=== PATIENT | female | born 1960 | race Asian ===

== ENCOUNTER 2025-07-20 15:27 | Inpatient (IN) | payer OTHER, SELFPAY ==
[2025-07-20] VITALS (35 sets, daily range): BP systolic 95–151; BP diastolic 60–130; BMI 22.6
[2025-07-20 09:12] LABS: Glucose - Point of Care 107 mg/dl (70-99)
[2025-07-20] MEDS: NSS 185 ML IV (09:54)
[2025-07-20] MEDS: LOW STRENGTH ASPIRIN 81 MG PO (10:02)
--- NOTE | 2025-07-20 14:52 | PTCARENOTE ---
pt found w head on table in front of her , stating she needs to lie down . she was diaphortic and pale w sustained hr of 36. pt did have low heart rate on admission as low as 36 but not sustained, dr escalante aware of this since admission. layed pt
back in chair bp 97/36 and responding to questions . chan no security operations manager at bedside 0.[address] escalante call to bedside to evaluate pt and speak with family .
--- NOTE | 2025-07-20 14:59 | W.PN.UPDATE ---
Update Note
Progress Note Update
CTSP re: presyncope/symptomatic bradycardia. Pt is post cath and was close to discharge when her HR dropped to the 30s. Pt became LH, dizzy, diaphoretic, pale. IVF wide open and given 0.5mg atropine with recovery of HR up to 65, pt feeling better,
BP improved to 100s. Review of telemetry at the time show SB, rates drop to 30s with junctional escape, now SB/SR.
Prior to this event, HR 50s on arrival. She had been prescribed metoprolol 25mg daily by primary cardiology after cardiac testing but had not started taking it. She is not taking any av yin brian medications. Pt denies any prior events of
syncope/pre syncope at home. She had a full lunch at 1PM today.
Dr. Orona at bedside and discussed plan with Dr. Nicole
Pt will be admitted to IVU for overnight observation. Family at bedside and aware of events and plan.
--- NOTE | 2025-07-20 16:33 | CM ---
Chart reviewed. Patient is independent of ADLS, lives alone in a 2 STH, 1 TONY, 0 DME. Plan is for the patient to return home. CM to follow
--- NOTE | 2025-07-20 16:59 | ITS.CL.PN ---
Communications Analyst - Procedure Note
Procedure
Procedure Note:
CARDIAC CATHETERIZATION REPORT
Date of Procedure: 07/20/2025
Referring: Dr. Jomar Whitmore MD
Indication: Anginal chest pain
PROCEDURE(S)
1. left heart catheterization
2. coronary angiography
ACCESS: 6F right radial artery (closure: radial band)
CATHETERS
1. 6F JR4
2. 6F JL3.5
MODERATE SEDATION: 25 minutes of moderate sedation was utilized. An independent medical practitioners was present to assist with and help manage the patient's level of consciousness and physiologic status.
HEMODYNAMIC DATA
LV 120/2 (EDP 7) mmHg
AO 128/74 (mean 97) mmHg
CORONARY ANGIOGRAPHY
Dominance: Right
LM: Large, normal
LAD: Large vessel giving rise to a small D1, small D2, and moderate caliber D3 before wrapping around the apex. There are mild luminal irregularities only.
LCx: Large vessel giving rise to a large OM1, moderate caliber OM2, and small LPL branch. There are mild luminal irregularities only.
RCA: Large vessel giving rise to moderate caliber RPDA and 2 moderate caliber RPL branches. There are mild luminal irregularities only.
CONCLUSIONS
1. Mild luminal irregularities only in a right dominant system
2. Normal LV filling pressure and no aortic stenosis
RECOMMENDATIONS
1. Primary prevention of coronary artery disease
2. Workup for etiology of anginal symptoms not related to epicardial coronary artery disease
Copy to: Dr. Jomar Whitmore MD (veteran appeals reviewer); Dr. Nidia Gaffney MD (PCP)
Signed: Yung Orona MD, PhD
[2025-07-20 17:26] LABS: Glucose - Point of Care 144 mg/dl (70-99)
[2025-07-20] MEDS: CRESTOR 20 MG PO (17:26)
--- NOTE | 2025-07-20 19:05 | PTCARENOTE ---
~[id number]: Patient arrived from [facility] via stretcher. Patient slid to bed. Aox4, SB/NSR 50s-60s, SBP 130s-140s, RA satting 97%. Pt denies LH/dizziness at this time. +2/2 pulses, no edema noted. R radial site CDI. Language line utilized for admission
questions/ assessment. Pt oriented to room and callbell system. All needs met at this time, call atwood within reach.
~[id number]: Pt OOB with standby assist to bedside commode. Patient did not c/o LH or dizziness at this time. HR does spontaneously graciela into the 40s and then can go up to 90s. I/Os charted. Family at bedside. All needs met at this time, call atwood
within reach.
~[id number]: Breakaway box placed in patient room in case patient sustain graciela into 30s like earlier in cardiac cath lab radiology technologist. Patient 40s-50s at this time with frequent 2 sec pauses, SBP 130s and patient does not c/o LH or dizziness. Family at bedside. Request
for bedside atropine order from CT PA in case needed, no order at this time. Pacing pads placed on patient. All needs met at this time, call atwood within reach. Handoff report given to nightshift RN.
--- NOTE | 2025-07-20 23:16 | PTCARENOTE ---
Received patient at change of shift. SB on the monitor, HR in the 40-50s with frequent 2 second pauses. Pads in place. R radial dressing CDI. No complaints from pt at this time, call atwood within reach.
[2025-07-21] VITALS (7 sets, daily range): BP systolic 99–139; BP diastolic 66–92
[2025-07-21 05:03] LABS: Hematocrit 36.2 % (37.0-47.0); Hemoglobin 12.3 g/dL (12.0-16.0); Mean Corp Hgb Conc. 34.0 g/dL (33.0-37.0); Mean Corpuscular Volume 89.4 fL (81.0-99.0); Platelet Count 179 10^3/uL (130-400); Red Cell Dist. Width 12.8 % (11.5-14.5)
[2025-07-21 05:21] LABS: Blood Urea Nitrogen 13 mg/dl (7-17); Calcium 9.3 mg/dl (8.4-10.2); Carbon Dioxide 28 mmol/L (22-30); Chloride 106 mmol/L (98-107); Estimated Creatinine Clearance 87 ml/min; Glucose 101 mg/dl (70-99); HDL Cholesterol 62 mg/dl; LDL Cholesterol, Calculated 52 mg/dl; Potassium 3.9 mmol/L (3.5-5.1); Sodium 138 mmol/L (135-145); Very Low Density Lipoprotein 14 mg/dl (0-30); eGFR > 60.00
[2025-07-21] MEDS: ASPIR LOW (ENTERIC COATED) 81 MG PO (10:16)
--- NOTE | 2025-07-21 10:30 | W.PN.CD ---
Addendum entered and electronically signed by Sabino Penaloza MD 07/21/25 18:07:
I saw and evaluated the patient, and I provided the substantive portion of the medical decision making.
I reviewed and agree with the note by [ ] and it accurately reflects our care.
I personally performed the medical decision making of the this encounter and my assessment and plan is below:
She is feeling well without complaint. This morning when sitting up in bed while awake heart rate was consistently in the 20s to 30s.
She has a regular rate and rhythm with normal S1-S2 no murmurs gallops or appreciated lungs with auscultation bilaterally.
Bradycardia: Episodes to the 20s and 30s while awake and sitting upright. After event yesterday initially there was concern for vasovagal etiology but this occurred in the absence of any trigger. Recommends permanent pacemaker placement. This may
also be the etiology of her nonspecific symptoms that led to catheterization. At first she was hesitant to proceed with pacemaker. Had a lengthy discussion with her son-in-law Smith over the phone with my recommendations. They are now agreeable.
Will plan for pacemaker on Wednesday.
Original Note:
Today's Communication / Plan
-
Recommendation is for PPM implant. Con't to monitor on telemetry
await family discussion on PPM
Impression / Plan
-
CP:
-associated with diaphoresis as OP, concern was for angina
-LHC with mild luminal irregularities only in a right dominant system
bradycardia:
-significant bradycardia post procedure. Initially thought to be related to radial band and possible vasovagal.
-Pt con't to have episodes of bradycardia with HR's into the 20-30's. She will have some HR variability with ambulating.
-She currently denies presyncope.
-Reviewed indication for PPM. Discussed with pt, and pt son in law who is a physical therapist. They would decline a PPM at this time. They would prefer to be conservative
with procedures. Reviewed high risk for worsening bradycardia or heart block which may increase risk for injury from a syncopal event. They understand the risk.
hyperlipidemia:
-recently started statin as OP
DM:
-OP hgba1 7. Followed by PCP
Time: 75 min. Multiple conversations with pt and family about recommendations for PPM
Physical Exam
Vital Signs/Labs
Vital Signs
Temp Pulse Resp BP Pulse Ox
98.0 F 45 16 123/80 98
07/21/25 08:28 07/21/25 08:28 07/21/25 08:28 07/21/25 04:37 07/21/25 08:28
07/20/25 07/21/25 07/22/25
06:59 06:59 06:59
Actual Weight 61.689 kg
07/21/25 04:47
07/21/25 04:47
Triglycerides 72 mg/dl (10-149) 07/21/25 04:47
LDL Cholesterol, Calc 52 mg/dl 07/21/25 04:47
VLDL Cholesterol, Calc 14 mg/dl (0-30) 07/21/25 04:47
HDL Cholesterol 62 mg/dl 07/21/25 04:47
Physical Exam
Constitutional: No acute distress
Cardiovascular: Rhythm & rate is regular (bradycardia at times)
Respiratory: Respiratory effort normal and Lungs clear to auscul.
GI: Soft, Non tender and Normal bowel sounds
Neuro/Psych: AO x 3
Other: Cath Site (R radial , no hematoma, there is a palpable R radial pulse. )
Data Reviewed
-
Date of Service: July 21, 2025
EKG: Tracing Personally Visualized and interpreted (SB 57 bpm, SA, PVC ) and Other (Tele SB- SR upper 20's -70's )
Labs: Labs Reviewed by me
Old Records: Reviewed
Total Time Spent with Patient (in minutes): 75
--- NOTE | 2025-07-21 14:28 | PTCARENOTE ---
Assessment as documented. Pt w/o complaints. Asymptomatic w bradycardia episodes. Ambulating in room w/o incidence. at bedside. Pending family mtg to decide if patient to have recommended PM inserted on Wednesday.
[2025-07-21] MEDS: CRESTOR 20 MG PO (17:14)
[2025-07-21 18:41] LABS: Hepatitis C Antibody Negative (Negative)
--- NOTE | 2025-07-21 23:22 | PTCARENOTE ---
Received patient at change of shift. SB on the monitor, HR in the 50s with frequent 2 second pauses, asymptomatic. R radial dressing CDI. No complaints from pt at this time, call atwood within reach.
[2025-07-22 04:55] VITALS: BP 124/84
--- NOTE | 2025-07-22 08:00 | PTCARENOTE ---
Assumed care of pt from prev shift RN; Pt AAOx3 w/no c/o CP or SOB. Pt w/VSS w/HR in the 50's-60's w/brief periods of bradycardia in the 30's-40's & occas pauses no greater than 2 seconds; MDs aware. Pt for PPM Monday 07/23. Pt also w/temp pacer
pads in place. Pt's R radial site w/dressing C/D/I w/no signs or symptoms of bleeding or hematoma. Pt w/call atwood within reach & plan of care ongoing.
[2025-07-22 08:05] VITALS: BP 114/74
--- NOTE | 2025-07-22 08:07 | W.PN.CD ---
Today's Communication / Plan
-
home today with close EP follow up
Impression / Plan
-
CP:
-associated with diaphoresis as OP, concern was for angina
-LHC with mild luminal irregularities only in a right dominant system
bradycardia:
-significant bradycardia post procedure. Initially thought to be related to radial band and possible vasovagal.
-Pt con't to have episodes of bradycardia with HR's into the 20-30's. However episodes are all very brief. In the last 24 hours much fewere episodes and I only see one episode where heart rate is in the high 20's for <5 seconds. She was in the
bathroom. She is absolutely asymptomatic.
-Initially I recommended ppm implant but now reconsidering.
-I think more evidence is needed prior to proceeding to pacemaker. I am not certain she will see benefit>risk
-I discussed with patient and he advocate Fernando. If she develops any symptom at all she will call 911.
-I will arrange short term follow up with Dr Nicole from EP. He will arrange for [facility] monitor and ETT.
-She currently denies presyncope.
-would avoid av yin agents
hyperlipidemia:
-recently started statin as OP
DM:
-OP hgba1 7. Followed by PCP
Time to discharge >30 minutes
Physical Exam
Vital Signs/Labs
Vital Signs
Temp Pulse Resp BP Pulse Ox
98.4 F 60 20 124/84 97
07/22/25 08:05 07/22/25 06:00 07/22/25 08:05 07/22/25 04:55 07/22/25 08:05
07/21/25 07/22/25 07/23/25
06:59 06:59 06:59
Actual Weight 136 lb
07/21/25 04:47
07/21/25 04:47
Triglycerides 72 mg/dl (10-149) 07/21/25 04:47
LDL Cholesterol, Calc 52 mg/dl 07/21/25 04:47
VLDL Cholesterol, Calc 14 mg/dl (0-30) 07/21/25 04:47
HDL Cholesterol 62 mg/dl 07/21/25 04:47
Physical Exam
Constitutional: No acute distress
Cardiovascular: Rhythm & rate is regular, Pedal edema is absent, JVD pressure is normal and Systolic murmur absent
Respiratory: Respiratory effort normal, Lungs clear to auscul., Wheeze Absent, Crackles Absent and Rhonchi Absent
Neuro/Psych: AO x 3
Data Reviewed
-
Date of Service: July 22, 2025
Medical Decision Making: Review of Case with other Provider (tele only one episode of severe sinus graciela otherwise sinus graciela 40-60's. )
[2025-07-22] MEDS: ASPIR LOW (ENTERIC COATED) 81 MG PO (09:37)
--- NOTE | 2025-07-22 10:15 | W.DS.TRANS ---
Addendum entered and electronically signed by Sabino Penaloza MD 07/22/25 10:27:
Error below:
Home medication change: STOP METOPROLOL
Original Note:
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
-
Discharge Instructions:
Discharge Diagnosis/Procedures Cardiac catheterization
Diet Low Cholesterol
Driving Restrictions No driving for 24 hours
Instructions:
Stand-Alone Forms: DC Instructions- Cath/EP Lab
Changes to Home Medications: No
Discharge Medications:
DC Medications w/original date entered in [facility]
aspirin 81 mg tablet,delayed release (Mimi Low Dose Aspirin) 81 mg PO DAILY 07/20/25
melatonin 10 mg tablet 10 mg PO HS PRN as needed 07/20/25
nitroglycerin 0.3 mg sublingual tablet 0.3 mg sublingual Q5-15M PRN ordered as PRN 07/20/25
rosuvastatin 20 mg tablet 20 mg PO QPM 07/20/25
Home Medication Changes
none
Pending Results: No
Total time spent discharging patient (in min): 31
--- NOTE | 2025-07-22 11:25 | PTCARENOTE ---
D/C'd pt's IV line & monitoring specialist. Discussed D/C instructions w/pt & pt's daughter> Pt escorted out via WC w/spouse driving pt home.
== END 2025-07-22 11:00 | disposition home or self-care (01) | DRG 287 ==
LOC: IVU 15:27
PROVIDERS: Nurse Practitioner; ADMITTING PHYSICIAN Student in an Organized Health Care Education/Training Program; FAMILY PHYSICIAN Internal Medicine Geriatric Medicine
PROC: B2111ZZ Fluoroscopy of Multiple Coronary Arteries using Low Osmolar Contrast (ICD-10-PCS; 2025-07-20)
PROC: 4A023N7 Measurement of Cardiac Sampling and Pressure, Left Heart, Percutaneous Approach (ICD-10-PCS; 2025-07-20)
DX: I20.9 Angina pectoris, unspecified (principal); I49.5 Sick sinus syndrome; E11.9 Type 2 diabetes mellitus without complications; E78.5 Hyperlipidemia, unspecified
CPT/HCPCS: 80048; 80061; 82962; 84443; 85027; 86803; 93005; 93458; 99152; 99153; C1769; C1894; Q9967